=== PATIENT | male | born 1950 | race Caucasian/White ===

== ENCOUNTER 2018-11-26 15:38 | Emergency (ER) | payer MEDICARE, OTHER ==
[~2018-11-26] VITALS: Ht 182.9 cm; Wt 90.9 kg
[2018-11-26 15:41] VITALS: Ht 182.9 cm; Wt 90.9 kg
[2018-11-26] MEDS ORDERED: LIDOCAINE 1% (MPF) 5 ML VIAL ONE (17:52)
--- NOTE | 2018-11-26 18:12 | ERD ---
ER Documentation Chief Complaint Chief Complaint POUNDING/PRESSURE LIKE PAIN@ LEFT CHEST RADIATES TO THE BACK X 4 DAYS HPI 68-year-old male presenting with left-sided pressure-like pain in the chest that has been going on for the past 3-4 days. He has had associated shortness of breath at rest and worsened by exertion. Today he went to cardiac rehab as he had a CABG done in August by Dr. Mosley. However they were unable to take him in and states that the his left chest had decreased breath sounds. His primary care doctor was called and she ordered a chest x-ray which was just done prior to patient's arrival. He was told at the radiology department to go to the ER immediately due to the chest x-ray abnormality. He denies any fevers or chills. He has not had any x-rays since August of his chest. He followed up with Dr. Mosley once. Denies any coughing. No dizziness or diaphoresis. ROS All systems reviewed and are negative except as per history of present illness. PMhx/Soc History of Surgery: Yes (CABG RECENTLY) Hx Cardiac Disorders: Yes (HTN, HYPERLIPIDEMIA, CAD) Hx Psychiatric Problems: No Hx Miscellaneous Medical Probl: Yes (CKD) Hx Alcohol Use: No Hx Substance Use: No Hx Tobacco Use: No Smoking Status: Never smoker FmHx Family History: No diabetes Physical Exam Vitals Vital Signs Date Temp Pulse Resp B/P (MAP) Pulse Ox O2 O2 Flow FiO2 Time Delivery Rate 11/26/18 58 15 152/98 98 Room Air 17:50 (116) 11/26/18 62 16 144/85 98 Room Air 17:35 (104) 11/26/18 60 20 163/83 98 Room Air 17:30 (109) 11/26/18 70 20 158/84 98 Room Air 17:17 (108) 11/26/18 68 18 168/104 98 Room Air 17:15 (125) 11/26/18 97.6 63 18 166/96 98 Room Air 16:12 (119) 11/26/18 97.6 70 18 176/106 98 15:41 (129) Physical Exam Const: No acute distress Head: Atraumatic Eyes: Normal Conjunctiva ENT: Normal External Ears, Nose and Mouth. Neck: Full range of motion. No meningismus. Resp: Significantly diminished breath sounds on the left. Right-sided breath sounds normal. No wheezing, rales, or rhonchi. Chest/Cardio: Well-healed sternotomy scar noted. No tenderness palpation of the chest. Regular rate and rhythm, no murmurs. 2+ distal pulses in all 4 extremities Abd: Soft, non tender, non distended. Normal bowel sounds Skin: No petechiae or rashes Back: No midline or flank tenderness Ext: No cyanosis, or edema Neur: Awake and alert, no facial asymmetry, normal speech, moving all extremities Psych: Normal Mood and Affect Result Diagram: 11/26/18 1629 11/26/18 1629 Results 24 hrs Laboratory Tests Test 11/26/18 16:15 11/26/18 16:29 Prothrombin Time 13.7 Sec Prothrombin Time Ratio 1.1 INR International Normalized Ratio 1.04 Activated Partial Thromboplast Time 29.4 Sec White Blood Count 5.9 10^3/ul Red Blood Count 5.39 10^6/ul Hemoglobin 14.7 g/dl Hematocrit 45.7 % Mean Corpuscular Volume 84.8 fl Mean Corpuscular Hemoglobin 27.3 pg Mean Corpuscular Hemoglobin Concent 32.2 g/dl Red Cell Distribution Width 14.1 % Platelet Count 330 10^3/UL Mean Platelet Volume 10.5 fl Immature Granulocytes % 0.500 % Neutrophils % 65.1 % Lymphocytes % 23.3 % Monocytes % 8.6 % Eosinophils % 2.0 % Basophils % 0.5 % Nucleated Red Blood Cells % 0.0 /100WBC Immature Granulocytes # 0.030 10^3/ul Neutrophils # 3.9 10^3/ul Lymphocytes # 1.4 10^3/ul Monocytes # 0.5 10^3/ul Eosinophils # 0.1 10^3/ul Basophils # 0.0 10^3/ul Nucleated Red Blood Cells # 0.0 10^3/ul Sodium Level 144 mmol/L Potassium Level 4.3 mmol/L Chloride Level 102 mmol/L Carbon Dioxide Level 31 mmol/L Anion Gap 11 Blood Urea Nitrogen 25 mg/dl Creatinine 1.98 mg/dl Est Glomerular Filtrat Rate mL/min 34 mL/min Glucose Level 96 mg/dl Calcium Level 9.5 mg/dl Total Bilirubin 0.6 mg/dl Direct Bilirubin 0.00 mg/dl Indirect Bilirubin 0.6 mg/dl Aspartate Amino Transf (AST/SGOT) 20 IU/L Alanine Aminotransferase (ALT/SGPT) 15 IU/L Alkaline Phosphatase 155 IU/L Troponin I < 0.012 ng/ml B-Type Natriuretic Peptide 3500 PG/ML Total Protein 7.2 g/dl Albumin 4.2 g/dl Globulin 3.00 g/dl Albumin/Globulin Ratio 1.40 Current Medications Medications Dose Sig/Zulma Start Time Status Last (Trade) Ordered Route PRN Stop Time Admin Dose Reason Admin Lidocaine 5 ml STK-MED 11/26/18 DC 11/26/18 (Xylocaine ONCE .ROUTE 17:52 17:53 1% (Mpf)) 11/26/18 17:53 Procedures/MDM EMERGENT LABS AND DIAGNOSTIC STUDIES: Lab Results above were reviewed and interpreted by me. CBC: no anemia or evidence of infection BMP: Elevated BUN and creatinine, creatinine at patient's baseline. 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 Radiology Results as interpreted by Radiology below were reviewed by SRojelio Reyes MD: Chest x-ray shows large left-sided pleural effusion Initial Nursing notes reviewed. Previous Medical Records requested via the Electronic Health Record. EMERGENCY DEPARTMENT COURSE / MEDICAL DECISION MAKING: Patient is presenting with shortness of breath and left-sided chest pain. I reviewed his chest x-ray that was done outpatient and it shows a large left pleural effusion. He is hemodynamically stable with normal oxygen saturation on room air. He does not appear to be in respiratory distress on exam. Workup did not show any evidence of ACS. He does have CKD but per him and his son, the creatinine is at his baseline. I spoke with radiology, who agreed to do a thoracentesis. 1.5 L of fluid was removed. Repeat chest x-ray still shows a large pleural effusion however the patient feels much better after the thoracentesis. I spoke with Dr. Vital, on-call for Dr. Mosley. He recommended follow-up in their office tomorrow and they can schedule an outpatient thorac entesis for him at that time. Return precautions were discussed with patient. He feels comfortable with this discharge plan. Patient's blood pressure was elevated (>120/80) but appears stable without evidence of hypertensive emergency or urgency. The patient was counseled about the risks of hypertension and urged to pursue outpatient monitoring and therapy within a week with their primary care physician. Departure Diagnosis: Primary Impression: Pleural effusion, left Additional Impression: History of coronary artery bypass graft x 3 Condition: Stable AILEEN REYES MD Nov 26, 2018 18:12
[2018-11-26 18:47] VITALS: BP 171/111; PULSE 60; RESP 15
== END 2018-11-26 19:00 | disposition home or self-care (01) ==
LOC: E/R 15:38
DX: J90 Pleural effusion, not elsewhere classified (principal); I25.10 Atherosclerotic heart disease of native coronary artery without angina pectoris; I12.9 Hypertensive chronic kidney disease with stage 1 through stage 4 chronic kidney disease, or unspecified chronic kidney disease; N18.9 Chronic kidney disease, unspecified; Z95.1 Presence of aortocoronary bypass graft
CPT/HCPCS: 32555; 36415; 71045; 80053; 83880; 84484; 85025; 85610; 85730; 93005

== ENCOUNTER → 2018-11-26 | Outpatient (CLI) | payer MEDICARE, OTHER | END | disposition home or self-care (01) | LOC: RAD 14:46 | PROVIDERS: ATTEND Internal Medicine Gastroenterology | DX: I50.9 Heart failure, unspecified (principal) | CPT/HCPCS: 71047 ==

== ENCOUNTER 2018-12-08 08:21 | Day surgery (SDC) | payer MEDICARE, OTHER ==
[~2018-12-08] VITALS: Ht 180.3 cm; Wt 91.6 kg
[2018-12-08] MEDS ORDERED: METO-448 PO (09:39)
[2018-12-08] MEDS ORDERED: TAMS-14 PO (09:40)
[2018-12-08] MEDS ORDERED: CARV6.2579 PO (09:40)
[2018-12-08] MEDS ORDERED: DILT240C79 PO (09:40)
[2018-12-08] MEDS ORDERED: LEVO75TA65 PO (09:41)
[2018-12-08] MEDS ORDERED: POTA20TA15 PO (09:41)
[2018-12-08] MEDS ORDERED: ATOR20TA38 PO (09:42)
[2018-12-08] MEDS ORDERED: BUME1TAB PO (09:42)
[2018-12-08] MEDS ORDERED: AMIO200T4 PO (09:42)
[2018-12-08] MEDS ORDERED: FURO40TA4 PO (09:43)
[2018-12-08] MEDS ORDERED: SACU1TAB7 PO (09:48)
[2018-12-08] MEDS ORDERED: ASPI81TA52 PO (09:48)
[2018-12-08 09:54] VITALS: BP 156/89; PULSE 59; RESP 16
[2018-12-08 09:55] VITALS: Ht 180.3 cm; Wt 91.6 kg
[2018-12-08 11:12] VITALS: BP 143/79; PULSE 50; RESP 16
[2018-12-08] MEDS ORDERED: LIDOCAINE 1% (MPF) 5 ML VIAL ONE (11:22)
[2018-12-08 11:42] VITALS: BP 158/76; PULSE 50; RESP 16
[2018-12-08 12:12] VITALS: BP 143/79; PULSE 50; RESP 16
[2018-12-08 12:32] VITALS: BP 158/81; PULSE 49; RESP 16
[2018-12-08 13:00] VITALS: BP 158/81; PULSE 50; RESP 16
== END 2018-12-08 13:00 | disposition home or self-care (01) ==
LOC: SDS 08:21
PROVIDERS: ATTEND Thoracic Surgery (Cardiothoracic Vascular Surgery)
DX: J90 Pleural effusion, not elsewhere classified (principal)
CPT/HCPCS: 71045; 76942